=== PATIENT | male | born 1985 | race African-American/Black ===

== ENCOUNTER 2017-06-17 22:21 | Emergency (ER) | payer SELFPAY ==
[~2017-06-17] VITALS: Ht 188 cm; Wt 136.0 kg
[~2017-06-17 22:21] MED LIST: IBUP800T23 PO
[2017-06-17 22:41] VITALS: BP 202/116; PULSE 99; RESP 16; TEMP 97.9; O2SAT 98
[2017-06-17 22:55] VITALS: BP 184/114; PULSE 89; RESP 18; O2SAT 97
[2017-06-17 23:29] VITALS: BP 175/110; PULSE 84; RESP 18; O2SAT 98
--- NOTE | 2017-06-17 23:43 | PD ---
HPI Chief Complaint: Hypertension Time Seen by Provider: 23:27 Travel History International Travel<30 days: No Contact w/Intl Traveler<30days: No Traveled to known affect area: No History of Present Illness HPI Patient is a 31-year-old -[place] male with no documented history of hypertension however his girlfriend is a nurse and says that his blood pressure at home is often 175/100 today in the ER he comes in is 202/100 and then as he relaxes in the exam room it becomes 175/110. He reports that he has been feeling headachy and dizzy all day. He does not do anything exertional his girlfriend says that he sits on the couch playing Game Boy all day long. He denies any social stressors outside of his living situation denies anything specific and he is here in the ER complaining of dizziness headache and hypertension no known medical allergies and he has never been on antihypertensives before [facility] Past Medical History Medical History: Denies Significant Hx Diminished Hearing: No Immunizations Current: Yes Tetanus Vaccination: > 5 Years Influenza Vaccination: No Past Surgical History Surgical History: No Previous Surgery Social History Alcohol Use: No Tobacco Use: No Substance Use: No Allergies-Medications (Allergen,Severity, Reaction): Coded Allergies: No Known Allergies (Verified , 05/26/13) Reported Meds & Prescriptions Reported Meds & Active Scripts Active Norvasc (Amlodipine Besylate) 5 Mg Tab 5 Mg PO DAILY Clonidine (Clonidine HCl) 0.1 Mg Tab 0.1 Mg PO BID Review of Systems Except as stated in HPI: all other systems reviewed are Neg Physical Exam Narrative GENERAL: Patient is awake alert nontoxic-appearing blood pressure is 175/110 SKIN: Warm and dry. HEAD: Atraumatic. Normocephalic. EYES: Pupils equal and round. No scleral icterus. No injection or drainage. ENT: No nasal bleeding or discharge. Mucous membranes pink and moist. Teeth he has many gold Teeth NECK: Trachea midline. No JVD. CARDIOVASCULAR: Regular rate and rhythm. RESPIRATORY: No accessory muscle use. Clear to auscultation. Breath sounds equal bilaterally. GASTROINTESTINAL: Abdomen soft, non-tender, nondistended. Hepatic and splenic margins not palpable. MUSCULOSKELETAL: Extremities without clubbing, cyanosis, or edema. No obvious deformities. NEUROLOGICAL: Awake and alert. No obvious cranial nerve deficits. Motor grossly within normal limits. Five out of 5 muscle strength in the arms and legs. Normal speech. PSYCHIATRIC: Appropriate mood and affect; insight and judgment normal. Data Data Last Documented VS Orders Orders Amlodipine (Norvasc) (06/17/17 23:45) Clonidine (Catapres) (06/17/17 23:45) Electrocardiogram (06/17/17 ) Complete Blood Count With Diff (06/18/17 00:12) Troponin I (06/18/17 00:12) Comprehensive Metabolic Panel (06/18/17 00:12) Ed Discharge Order (06/18/17 01:46) Labs Laboratory Tests Test 06/18/17 00:30 White Blood Count 8.6 TH/MM3 Red Blood Count 4.75 MIL/MM3 Hemoglobin 13.4 GM/DL Hematocrit 39.0 % Mean Corpuscular Volume 82.0 FL Mean Corpuscular Hemoglobin 28.2 PG Mean Corpuscular Hemoglobin Concent 34.4 % Red Cell Distribution Width 14.1 % Platelet Count 237 TH/MM3 Mean Platelet Volume 8.8 FL Neutrophils (%) (Auto) 66.0 % Lymphocytes (%) (Auto) 24.5 % Monocytes (%) (Auto) 6.4 % Eosinophils (%) (Auto) 2.6 % Basophils (%) (Auto) 0.5 % Neutrophils # (Auto) 5.7 TH/MM3 Lymphocytes # (Auto) 2.1 TH/MM3 Monocytes # (Auto) 0.5 TH/MM3 Eosinophils # (Auto) 0.2 TH/MM3 Basophils # (Auto) 0.0 TH/MM3 CBC Comment DIFF FINAL Differential Comment Blood Urea Nitrogen 12 MG/DL Creatinine 1.30 MG/DL Random Glucose 88 MG/DL Total Protein 7.7 GM/DL Albumin 3.8 GM/DL Calcium Level 9.3 MG/DL Alkaline Phosphatase 80 U/L Aspartate Amino Transf (AST/SGOT) 25 U/L Alanine Aminotransferase (ALT/SGPT) 63 U/L Total Bilirubin 0.4 MG/DL Sodium Level 136 MEQ/L Potassium Level 4.1 MEQ/L Chloride Level 101 MEQ/L Carbon Dioxide Level 27.3 MEQ/L Anion Gap 8 MEQ/L Estimat Glomerular Filtration Rate 78 ML/MIN Troponin I LESS THAN 0.02 NG/ML MDM Medical Decision Making Medical Screen Exam Complete: Yes Emergency Medical Condition: Yes Differential Diagnosis htn causing headache or headache pain raising pts BP pt has untreated HTN for months, pt has essential htn or white coat symdrome where er visits and anxiety cause BP rise Narrative Course Patient is given clonidine and Norvasc in the ER an EKG and labs pressure comes down to 162/90 I discharged home with clonidine and Norvasc to follow-up with his clinic patient had some flipped T waves in 1 aVL V 4 5 and 6 I did a troponin which was negative patient has no chest pain this could be just the LV strain from chronic hypertension patient is got a blood pressure cuff at home and his girlfriend is a nurse she will monitor his response to the medications Diagnosis Primary Impression: Essential (primary) hypertension Patient Instructions: General Instructions, Hypertension (ED) Scripts Amlodipine (Norvasc) 5 Mg Tab 5 MG PO DAILY for Blood Pressure Management, #60 TAB 0 Refills Prov: Garcia Martin MD 06/18/17 Clonidine (Clonidine) 0.1 Mg Tab 0.1 MG PO BID for Blood Pressure Management, #60 TAB 0 Refills Prov: Garcia Martin MD 06/18/17 Disposition: 01 DISCHARGE HOME Condition: Good Garcia Martin MD Jun 17, 2017 23:43
[2017-06-17] MEDS ORDERED: cloNIDine HCL 0.1 MG TAB PO ONE (23:45)
[2017-06-17] MEDS ORDERED: amLODIPine BESYLATE 5 MG TAB PO ONE (23:45)
[2017-06-18 00:35] VITALS: BP 186/99; PULSE 78; RESP 18; O2SAT 99
[2017-06-18 00:55] LABS: AUTOMATED NEUTROPHIL # 5.7 TH/MM3 (1.8-7.7); BASOPHIL % 0.5 % (0.0-2.0); EOSINOPHIL # 0.2 TH/MM3 (0-0.4); EOSINOPHIL % 2.6 % (0.0-4.0); HEMOGLOBIN 13.4 GM/DL (13.0-17.0); LYMPH % 24.5 % (9.0-44.0); LYMPHOCYTE # 2.1 TH/MM3 (1.0-4.8); MEAN CORPUSCULAR HEMOGLOBIN 28.2 PG (27.0-34.0); MEAN CORPUSCULAR HGB CONC 34.4 % (32.0-36.0); MEAN PLATELET VOLUME 8.8 FL (7.0-11.0); MONO % 6.4 % (0.0-8.0); MONOCYTE # 0.5 TH/MM3 (0-0.9); PLATELET COUNT 237 TH/MM3 (150-450); RED BLOOD COUNT 4.75 MIL/MM3 (4.50-5.90); RED CELL DISTRIBUTION WIDTH 14.1 % (11.6-17.2); WHITE BLOOD COUNT 8.6 TH/MM3 (4.0-11.0)
[2017-06-18 01:05] LABS: ALBUMIN 3.8 GM/DL (3.4-5.0); AST (GOT) 25 U/L (15-37); BICARBONATE 27.3 MEQ/L (21.0-32.0); BLOOD UREA NITROGEN 12 MG/DL (7-18); CALCIUM 9.3 MG/DL (8.5-10.1); CHLORIDE 101 MEQ/L (98-107); GLOMERULAR FILTRATION RATE 78 ML/MIN (>89); GLUCOSE,RANDOM 88 MG/DL (74-106); SODIUM (NA) 136 MEQ/L (136-145)
[2017-06-18 01:06] LABS: ALT (GPT) 63 U/L (12-78)
[2017-06-18 01:07] VITALS: BP 169/108; PULSE 82; RESP 18; O2SAT 99
[2017-06-18 01:10] LABS: ALKALINE PHOSPHATASE 80 U/L (45-117); TOTAL BILIRUBIN ADULT 0.4 MG/DL (0.2-1.0); TOTAL PROTEIN 7.7 GM/DL (6.4-8.2); TROPONIN I LESS THAN 0.02 NG/ML (0.02-0.05)
[2017-06-18 01:19] VITALS: BP 162/96; PULSE 86; RESP 18; O2SAT 97
[2017-06-18] MEDS ORDERED: CLON0.1T PO (01:30)
[2017-06-18] MEDS ORDERED: AMLO5 PO (01:30)
--- NOTE | 2017-06-18 18:05 | EKG ---
Date Performed: 06/17/2017 Time Performed: 23:50:11 PTAGE: 31 years EKG: Sinus rhythm POSSIBLE LEFT ATRIAL ENLARGEMENT ST DEVIATION AND MODERATE T-WAVE ABNORMALITY, CONSIDER LATERAL ISCH EMIA ABNORMAL ECG NO PREVIOUS TRACING DOCTOR: Teresita Sanchez Interpretating Date/Time 06/18/2017 18:02:45
== END 2017-06-18 01:46 | disposition home or self-care (01) ==
LOC: NEPC 22:21
DX: I10 Essential (primary) hypertension (principal); R94.31 Abnormal electrocardiogram [ECG] [EKG]
CPT/HCPCS: 80053; 84484; 85025; 93005; 99284